=== PATIENT | female | born 1995 | race Caucasian/White ===

== ENCOUNTER 2016-09-13 19:17 | Emergency (ER) | payer OTHER ==
[~2016-09-13] VITALS: Ht 160 cm; Wt 81.6 kg
[2016-09-13] MEDS ORDERED: BENA25TA9 PO (19:33)
[2016-09-13] MEDS ORDERED: CLEO300C2 PO (20:58)
[2016-09-13] MEDS ORDERED: NORCOTAB PO (20:58)
[2016-09-13] MEDS ORDERED: CLINDAMYCIN 150 MG CAP PO ONE (21:00)
[2016-09-13] MEDS ORDERED: NORCO, ANEXSIA 5/325MG TABLET (HYDROcodone/ACETAMINOPHEN) PO ONE (21:00)
[2016-09-13 21:01] VITALS: BP 127/75
== END 2016-09-13 21:28 | disposition home or self-care (01) ==
LOC: M ED 20:28
DX: L03.114 Cellulitis of left upper limb (principal); F17.200 Nicotine dependence, unspecified, uncomplicated; Z88.0 Allergy status to penicillin